=== PATIENT | male | born 1955 ===

== ENCOUNTER 2017-01-26 00:08 | Observation (INO) | payer OTHER ==
[2017-01-26] VITALS (13 sets, daily range): BP systolic 86–128; BP diastolic 51–86
[~2017-01-26] VITALS: Ht 167.6 cm; Wt 50.8 kg
--- NOTE | 2017-01-26 02:36 | ED ORDER SUMMARY ---
..... Patient: RAMIRO ROSALES OrderSheet [facility] VisitID: [id number] [address] [place] [address] 61y, M Registration Date/Time: 01/26/2017 ORDER SHEET Weight: 53.9 kg (stated) Allergies: No Known Drug Allergy GENERAL ORDERS: CBC w Diff Urgent (00:22 01/26/2017 Ely Rodriguez) (Ack 0:28 SRedmond) (0:58 TLewis R.N.) CMP Urgent (00:22 01/26/2017 Ely Rodriguez) (Ack 0:28 SRedmond) (0:58 TLewis R.N.) CT Abd/Pel w Cont (No) (10/0.7) (R inguinal mass) Urgent (01:03 01/26/2017 Ely Rodriguez) (Ack 1:06 SRedmond) (1:20 TLewis R.N.) Chest 1V (Pre-op) Urgent (02:35 01/26/2017 Ely Rodriguez) (Ack 2:39 AMcQuoid ER Tech1) (2:39 TLewis R.N.) EKG - ER Stat (02:35 01/26/2017 Ely Rodriguez) (Ack 2:40 SRedmond) (2:52 AMcQuoid ER Tech1) MEDICATION ORDERS: IV FLUIDS: IV Saline Lock (00:22 01/26/2017 Ely Rodriguez) (0:27 TChapman R.N.) Clindamycin IV 600 mg/50mL (NOW) (03:20 01/26/2017 Ely Rodriguez) (Ack 3:26 HSoule) Levofloxacin IV 500 mg/100mL (NOW) (03:21 01/26/2017 Ely Rodriguez) (Ack 3:26 HSoule) ORDER SHEET NOTES: [Electronically signed by Chilo Alvarado R.N. (04:01 01/26/2017)] [Electronically signed by Shankar Porter Dr. (04:31 01/26/2017)] [Electronically locked/signed by Chilo Alvarado R.N. (04:01/26/2017)]
--- NOTE | 2017-01-26 02:36 | ED NURSING NOTES ---
Clinical Report - Nurses [address] [place] [place] [address] 01/26/2017 0:11 Patient: RAMIRO ROSALES TRIAGE Triage time 00:19. Acuity: LEVEL 3. Chief Complaint: SKIN PROBLEM and TENDER AREA. --00:23 Janeth Card R.N. 00:17 01/26/17. BP: 119/66 taken on the left arm, while lying. HR: 87 (normal rate). RR: 16 (unlabored). O2 saturation: 95% on room air. Temp: 98.3 F (oral). Pain level now: 0. --00:23 Janeth Card R.N. Weight: 53.9 kg stated. Height/Length: 66 inches Per Patient. BMI: 19.2. --00:15 Janeth Card R.N. Allergies No Known Drug Allergy. --00:21 Janeth Card R.N. History Arrived by EMS. Historian: patient. Location - right groin. This started today. 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 SOCIAL HX: Heavy tobacco smoker (cigarette)- less than 1 pack per day. No alcohol use or drug use. No infectious disease exposure. FALL RISK ASSESSMENT: Fall risk assessment completed. No fall risk identified. NUTRITIONAL RISK ASSESSMENT: The nutritional risk assessment revealed no deficiencies. FUNCTIONAL ASSESSMENT: Functional assessment: no impairments noted. LEARNING NEEDS ASSESSMENT: The learning needs assessment revealed no barriers. SKIN INTEGRITY ASSESSMENT: Skin integrity risk assessment completed. No skin integrity risk identified. --00:23 Janeth Card R.N. PROBLEMS: Depression. Diabetes Mellitus. --00:22 Janeth Card R.N. Heart Disease. --00:22 Janeth Card R.N. ADDITIONAL SURGERIES: Stent. --00:22 Janeth Card R.N. Interventions ID band on patient. To treatment room. --00:23 Janeth Card R.N. PHYSICAL ASSESSMENT To room via stretcher. GENERAL / NEURO / PSYCH: Alert. The patient does not appear to be in acute distress. Oriented X 4. HEENT: Mucous membranes are pink. RESPIRATORY: Respirations not labored. Breath sounds within normal limits. CVS: Pulses within normal limits. GI / : Abdomen nontender. SKIN: Skin is intact and warm. Swelling in the right groin- associated with erythema and tenderness. No skin rash. --00:25 Janeth Card R.N. NURSING PROGRESS NOTES 00:25 01/26/17. The plan of care for this patient has been created. Patient gowned. Head of bed elevated. Emergency Veterinarian provided for the genital exam by the physician. Side rails up x 1. Bed placed in lowest position. Brakes of bed on. Patient ready for evaluation- ED physician notified. --00:26 Janeth Card R.N. 00:26 01/26/2017 Site #1 started via IV in the left antecubital space with an 20g angiocath; one attempt. Blood drawn: rainbow set. Labeled in the presence of the patient and sent to the lab. Saline lock flushed with 5 mL saline. --00:27 Janeth Card R.N. The initial plan of care for this patient includes an assessment with efforts to address developmental concerns; impairment of the integumentary system. Reassurance given. ( patient waiting for CT). --00:35 Janeth Card R.N. Patient transported to CT by stretcher with tech. (01:20). --01:21 Chilo Alvarado R.N. ( Pt is resting in bed with no signs of distress. Pt does understand he will need surgery, per MD.). --02:10 Chilo Alvarado R.N. 02:08 01/26/17. BP: 112/69. HR: 76. RR: 15. O2 saturation: 94%. Pain level now 11/28. --02:10 Chilo Alvarado R.N. ( X ray in the room.). --02:39 Chilo Alvarado R.N. EKG was performed by a tech and shown to the ED physician. --02:52 McKeith, Nehal, ER Tech1 ( Report given to Olivia GIBSON). --03:15 Christiano, Chilo, R.N. DISPOSITION / DISCHARGE Departure time: 344. Condition at departure: unchanged. Disposition: observation in Acute Care (344). ( pt was taken up on stretcher with primary rn). --04:00 Chilo Alvarado R.N. Locked/Released at 01/26/2017 4:01 by Chilo Alvarado R.N.
--- NOTE | 2017-01-26 02:36 | ED ORDER SUMMARY ---
..... Patient: RAMIRO ROSALES OrderSheet [facility] VisitID: [id number] [address] [place] [address] 61y, M Registration Date/Time: 01/26/2017 ORDER SHEET Weight: 53.9 kg (stated) Allergies: No Known Drug Allergy GENERAL ORDERS: CBC w Diff Urgent (00:22 01/26/2017 Ely Rodriguez) (Ack 0:28 SRedmond) (0:58 TLewis R.N.) CMP Urgent (00:22 01/26/2017 Ely Rodriguez) (Ack 0:28 SRedmond) (0:58 TLewis R.N.) CT Abd/Pel w Cont (No) (10/0.7) (R inguinal mass) Urgent (01:03 01/26/2017 Ely Rodriguez) (Ack 1:06 SRedmond) (1:20 TLewis R.N.) Chest 1V (Pre-op) Urgent (02:35 01/26/2017 Ely Rodriguez) (Ack 2:39 AMcQuoid ER Tech1) (2:39 TLewis R.N.) EKG - ER Stat (02:35 01/26/2017 Ely Rodriguez) (Ack 2:40 SRedmond) (2:52 AMcQuoid ER Tech1) MEDICATION ORDERS: IV FLUIDS: IV Saline Lock (00:22 01/26/2017 Ely Rodriguez) (0:27 TChapman R.N.) Clindamycin IV 600 mg/50mL (NOW) (03:20 01/26/2017 Ely Rodriguez) (Ack 3:26 HSoule) Levofloxacin IV 500 mg/100mL (NOW) (03:21 01/26/2017 Ely Rodriguez) (Ack 3:26 HSoule) ORDER SHEET NOTES: [Electronically signed by Chilo Alvarado R.N. (04:01 01/26/2017)] [Electronically signed by Shankar Porter Dr. (04:31 01/26/2017)] [Electronically locked/signed by Chilo Alvarado R.N. (04:01/26/2017)]
--- NOTE | 2017-01-26 02:36 | ED NURSING NOTES ---
Clinical Report - Nurses [address] [place] [address] 01/26/2017 0:11 Patient: RAMIRO ROSALES TRIAGE Triage time 00:19. Acuity: LEVEL 3. Chief Complaint: SKIN PROBLEM and TENDER AREA. --00:23 Janeth Card R.N. 00:17 01/26/17. BP: 119/66 taken on the left arm, while lying. HR: 87 (normal rate). RR: 16 (unlabored). O2 saturation: 95% on room air. Temp: 98.3 F (oral). Pain level now: 0. --00:23 Janeth Card R.N. Weight: 53.9 kg stated. Height/Length: 66 inches Per Patient. BMI: 19.2. --00:15 Janeth Card R.N. Allergies No Known Drug Allergy. --00:21 Janeth Card R.N. History Arrived by EMS. Historian: patient. Location - right groin. This started today. 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 SOCIAL HX: Heavy tobacco smoker (cigarette)- less than 1 pack per day. No alcohol use or drug use. No infectious disease exposure. FALL RISK ASSESSMENT: Fall risk assessment completed. No fall risk identified. NUTRITIONAL RISK ASSESSMENT: The nutritional risk assessment revealed no deficiencies. FUNCTIONAL ASSESSMENT: Functional assessment: no impairments noted. LEARNING NEEDS ASSESSMENT: The learning needs assessment revealed no barriers. SKIN INTEGRITY ASSESSMENT: Skin integrity risk assessment completed. No skin integrity risk identified. --00:23 Janeth Card R.N. PROBLEMS: Depression. Diabetes Mellitus. --00:22 Janeth Card R.N. Heart Disease. --00:22 Janeth Card R.N. ADDITIONAL SURGERIES: Stent. --00:22 Janeth Card R.N. Interventions ID band on patient. To treatment room. --00:23 Janeth Card R.N. PHYSICAL ASSESSMENT To room via stretcher. GENERAL / NEURO / PSYCH: Alert. The patient does not appear to be in acute distress. Oriented X 4. HEENT: Mucous membranes are pink. RESPIRATORY: Respirations not labored. Breath sounds within normal limits. CVS: Pulses within normal limits. GI / : Abdomen nontender. SKIN: Skin is intact and warm. Swelling in the right groin- associated with erythema and tenderness. No skin rash. --00:25 Janeth Card R.N. NURSING PROGRESS NOTES 00:25 01/26/17. The plan of care for this patient has been created. Patient gowned. Head of bed elevated. Counter Pocket Sewer provided for the genital exam by the physician. Side rails up x 1. Bed placed in lowest position. Brakes of bed on. Patient ready for evaluation- ED physician notified. --00:26 Janeth Card R.N. 00:26 01/26/2017 Site #1 started via IV in the left antecubital space with an 20g angiocath; one attempt. Blood drawn: rainbow set. Labeled in the presence of the patient and sent to the lab. Saline lock flushed with 5 mL saline. --00:27 Janeth Card R.N. The initial plan of care for this patient includes an assessment with efforts to address developmental concerns; impairment of the integumentary system. Reassurance given. ( patient waiting for CT). --00:35 Janeth Card R.N. Patient transported to CT by stretcher with tech. (01:20). --01:21 Chilo Alvarado R.N. ( Pt is resting in bed with no signs of distress. Pt does understand he will need surgery, per MD.). --02:10 Chilo Alvarado R.N. 02:08 01/26/17. BP: 112/69. HR: 76. RR: 15. O2 saturation: 94%. Pain level now 11/28. --02:10 Chilo Alvarado R.N. ( X ray in the room.). --02:39 Chilo Alvarado R.N. EKG was performed by a tech and shown to the ED physician. --02:52 McKeith, Nehal, ER Tech1 ( Report given to Olivia GIBSON). --03:15 Christiano, Chilo, R.N. DISPOSITION / DISCHARGE Departure time: 344. Condition at departure: unchanged. Disposition: observation in Acute Care (344). ( pt was taken up on stretcher with primary rn). --04:00 Chilo Alvarado R.N. Locked/Released at 01/26/2017 4:01 by Chilo Alvarado R.N.
--- NOTE | 2017-01-26 02:36 | ED CLINICAL REPORT ---
Clinical Report - Physicians/Mid Levels [facility] [address] [place] [address] 01/26/2017 0:11 Patient: RAMIRO ROSALES Time Seen: 00:18; initial patient contact. Arrived- By ambulance. Historian- patient. HISTORY OF PRESENT ILLNESS Chief Complaint: SKIN RASH and BOIL. This started yesterday and is still present. It was gradual in onset. It is described as painful. It has been located on the right lower extremity (R inguinal area). No cause has been identified. No recent insect bite. Similar symptoms previously: None. Recent medical care: Not recently seen/assessed. REVIEW OF SYSTEMS No fever, chills, abdominal pain, nausea or vomiting. All systems otherwise negative, except as recorded above. PAST HISTORY Depression. Diabetes Mellitus. Heart Disease. SURGERIES: Stent. Allergies: No Known Drug Allergy. SOCIAL HISTORY Current every day heavy tobacco smoker. No alcohol use or drug use. ADDITIONAL NOTES The nursing notes have been reviewed. PHYSICAL EXAM Vital Signs: 01/26/2017 00:17 BP: 119/66. HR: 87. RR: 16. O2 saturation: 95%. Temp: 98.3 F. Pain level now: 0/10. Have been reviewed as normal. Appearance: Alert. Oriented X3. No acute distress. ENT: Pharynx normal. CVS: Normal heart rate and rhythm. Heart sounds normal. Respiratory: No respiratory distress. Breath sounds normal. Abdomen: Nontender. No organomegaly. No hernia. Skin: Single medium abscess with cellulitis (Right inguinal). No drainage. Mild, erythematous skin rash present in the right groin. Neuro: Oriented X 3. LABS, X-RAYS, AND EKG EKG: EKG time: (247). No acute process. No acute ischemia. Normal sinus rhythm. Rate: 80. Normal P waves. Normal ANGELIA. Normal QRS complex. Right axis deviation. Normal ST and T waves, QT and QTc. Prior EKG unavailable. The study has been interpreted contemporaneously by me. The study has been independently viewed by me. The EKG appears to be a good tracing. Interpretation time: 0248. Chest X-ray: No acute disease. Moderate hyperinflation present on the right and left with flattening of the diaphragm. Consistent with COPD. Views: AP. Technique: good. The X-rays were independently viewed by me and interpreted contemporaneously by me. Prior films were not available for comparison. Interpretation time: 03:14. Abdominal CT: Superficial skin thickening and 1.1 cm enhancing mass in the R inguinal area suspicious for developing abscess. Also suspected R epididymitis. Study type: abdomen and pelvis. Abdominal CT performed with IV contrast. Prior studies were not available for comparison. The study was interpreted by the radiologist and discussed with the radiologist. Interpretation time: 0145. Laboratory Tests: CBC w Diff: (BUFFY: 01/26/2017 00:30) ( MsgRcvd 01/26/2017 00:54) Final results Test Result Flag Units (Reference) WHITE BLOOD COUNT 11.6 H K/uL (4.5-11.5) RED BLOOD COUNT 4.09 L M/uL (4.50-5.90) HEMOGLOBIN 13.6 gm/dL (13.5-17.5) HEMATOCRIT 40.6 L % (41.0-53.0) MEAN CELL VOLUME 99 fL (80-100) MEAN CORPUSCULAR HGB 33 pg (26-34) MEAN CORPUSCULAR HGB CONC 34 g/dL (31-37) RED CELL DISTRIBUTION WIDTH 14.2 % (11.6-14.8) PLATELET COUNT 266 K/uL (150-400) NEUTROPHIL % 62.9 % (50-75) LYMPH % 24.2 L % (25-40) MONO % 7.7 % (3-14) EOSINOPHIL % 4.3 H % (0-4) BASOPHIL % 0.9 % (0-2) CMP: (BUFFY: 01/26/2017 00:30) ( MsgRcvd 01/26/2017 01:03) Final results Test Result Flag Units (Reference) GLUCOSE 112 H mg/dL (70-110) BUN 10 mg/dL (7-18) CREATININE 0.9 mg/dL (0.6-1.3) Estimated GFR >60 mL/min Estimated GFR- >60 mL/min Note: Persistent reduction over 3 months in eGFR<60 mL/min/1.73 m2 defines CKD. Patients with eGFR values>=60 mL/min/1.73 m2 may also have CKD if evidence ofpersistent proteinuria. Additional information may be foundat www.kidney.org. SODIUM 140 mmol/L (136-145) POTASSIUM 3.8 mmol/L (3.5-5.1) CHLORIDE 103 mmol/L (98-107) CARBON DIOXIDE 29 mmol/L (21-32) CALCIUM 9.3 mg/dL (8.5-10.1) TOTAL PROTEIN 7.1 g/dL (6.4-8.2) ALBUMIN 3.8 g/dL (3.3-5.0) BILIRUBIN, TOTAL 0.3 mg/dL (0.0-1.0) ALKALINE PHOSPHATASE 78 U/L (46-116) AST (SGOT) 22 U/L (15-37) ALT (SGPT) 23 U/L (12-78) . PROGRESS AND PROCEDURES Consult obtained from surgery. call returned 02:30 Dr. Babb. Admit to hospitalist and will take to OR in the AM. Disposition: Observation in Acute Care. CLINICAL IMPRESSION Single deep abscess to the right inguinal region. Right epididymitis. INSTRUCTIONS Follow-up: Screening today revealed the patient's blood pressure to be in the normal range. (Electronically signed by Shankar Porter Dr. 01/26/2017 4:31)
--- NOTE | 2017-01-26 03:19 | Progress Note ---
Subjective General 61 y.o. male smoker who presents with right groin abscess confirmed on CT. Hx of CAD with hx of stent in past and DM. Plan: IV abx, Surgical consult for I&D in OR.
--- NOTE | 2017-01-26 04:00 | NUR ---
Pt from ED. Ambulated stretcher to bed. R groin noted egg size induration. Warm to touch, erythema. Denies pain. Pt is poor historian. [place] & speech difficult to understand. ? dev delay. He states he sees mental health q2wks for shots, stating "I used to hallucinate." Pt does not know home meds. Will have day RN call. Abx to be hung. Pt understands he is NPO for possible surgery.
--- NOTE | 2017-01-26 04:31 | ED MAR SUMMARY ---
..... Medication Administration Record [facility] [address] [place], [place] [id number] Patient: RAMIRO ROSALES Visit ID: [id number] 61y, M Weight: 53.9 kg Height/Length: 66 in BMI: 19.2 ALLERGIES: No Known Drug Allergy
--- NOTE | 2017-01-26 04:31 | ED DISCHARGE INSTRUCTIONS ---
Patient: RAMIRO ROSALES General Instructions [facility] VisitID: [id number] [address] [place] [address] 61y, M Registration Date/Time: 01/26/2017 Single deep abscess to the right inguinal region. Right epididymitis. INSTRUCTIONS Follow-up: Screening today revealed the patient's blood pressure to be in the normal range. (Electronically signed by Shankar Porter Dr. 01/26/2017 4:31)
--- NOTE | 2017-01-26 04:31 | ED MED RECONCILIATION SUMMARY ---
Patient: RAMIRO ROSALES Medication Reconciliation Report [facility] VisitID: [id number] [address] [place] [address] 61y, M Registration Date/Time: 01/26/2017 Weight: 53.9 kg Height/Length: 66 in. BMI: 19.2 ALLERGIES: No Known Drug Allergy The patient's Home Medications are listed below: Not obtained. The source(s) of the original Home Medication information: Not obtained. The following Medications were given to the patient in the Emergency Department: None. The following Medications were prescribed to the patient: None.
--- NOTE | 2017-01-26 04:31 | ED DISCHARGE INSTRUCTIONS ---
Patient: RAMIRO ROSALES General Instructions [facility] VisitID: [id number] [address] [place] [place] [address] 61y, M Registration Date/Time: 01/26/2017 Single deep abscess to the right inguinal region. Right epididymitis. INSTRUCTIONS Follow-up: Screening today revealed the patient's blood pressure to be in the normal range. (Electronically signed by Shankar Porter Dr. 01/26/2017 4:31)
--- NOTE | 2017-01-26 04:31 | ED MAR SUMMARY ---
..... Medication Administration Record [facility] [address] [place], [place] [id number] Patient: RAMIRO ROSALES Visit ID: [id number] 61y, M Weight: 53.9 kg Height/Length: 66 in BMI: 19.2 ALLERGIES: No Known Drug Allergy
--- NOTE | 2017-01-26 04:31 | ED MED RECONCILIATION SUMMARY ---
Patient: RAMIRO ROSALES Medication Reconciliation Report [facility] VisitID: [id number] [address] [place] [address] 61y, M Registration Date/Time: 01/26/2017 Weight: 53.9 kg Height/Length: 66 in. BMI: 19.2 ALLERGIES: No Known Drug Allergy The patient's Home Medications are listed below: Not obtained. The source(s) of the original Home Medication information: Not obtained. The following Medications were given to the patient in the Emergency Department: None. The following Medications were prescribed to the patient: None.
--- NOTE | 2017-01-26 05:21 | NUR ---
Money from pt wallet ($55) brought to safe in admitting by nsg supervisor phosphoric acid. Pt is now resting. Will check BS q6h per order, as is diabetic
--- NOTE | 2017-01-26 06:44 | History & Physical Report ---
Information Source Information Source: Self Reliability: Good History Chief Complaint Right groin pain History of Present Illness 61-year-old male who was brought to the emergency room for evaluation of what initially was thought to be a right groin rash. According to the patient who is developmentally delayed and lives by himself and is followed by a mental health provider, the discomfort began approximately 2 days ago. Denies any trauma to this area. Denies any fever or chills. Patient History 1. Abscess of groin, right Social History Single. No children. Smokes less than a half pack cigarettes a day. Does not use recreational drugs. Does not drink alcohol. He is not employed. He is on disability for mental health issues. Health Maintenance Past medical surgical history includes depression, diabetes. Heart disease. Status post stent placement. Medications and Allergies Medications No record of medications from home. Current Medications Sig/Blair Start time Last Medication Dose Route Stop Time Status Admin Levofloxacin/Dextrose 100 ML Q24HR 01/27 0900 AC 01/26 IV 0429 Clindamycin 50 ML Q6H 01/26 0900 CAN Phosphate/Dextrose IV Levofloxacin/Dextrose 500 MG DAILY 01/26 0900 CAN IV Clindamycin 50 ML Q6HR 01/26 0600 AC 01/26 Phosphate/Dextrose IV 0535 Insulin Human Lispro See Dose Q6HR 01/26 0600 AC Insts (1) SC Clindamycin 900 MG Q6H 01/26 0330 CAN Phosphate/Dextrose IV Acetaminophen 650 MG Q6H PRN 01/26 0315 AC PO Dose Instructions: (1)Insulin Human Lispro: LOW DOSE SLIDING SCALE Allergies Coded Allergies: NKA (01/26/17) Allergies No Known Drug Allergy. --00:21 Janeth Card R.N. Review of Systems Constitutional Other (no history of hepatitis, jaund). Eyes Denies: Vision Change. ENT Denies: Ear Pain, Nasal Discharge, Mouth Swelling, Throat Pain. Respiratory Denies: Cough, SOB w/exertion. Cardiovascular Denies: Chest Pain, Palpitations. Gastrointestinal Denies: Melena, Hematochezia. Genitourinary Denies: Dysuria, Hematuria. Musculoskeletal Denies: Neck Pain, Back Pain, Leg Pain. Skin Rash, Other (complains of swelling and disc). Neurological Denies: Weakness, Numbness, Seizures. Physical Exam Vital Signs / I&Os Vital Signs Date Time Temp Pulse Resp B/P Pulse O2 O2 Flow FiO2 Ox Delivery Rate 01/26 0626 98.6 79 18 108/64 95 Room Air 01/26 0346 98.2 79 16 128/73 95 Room Air General Appearance Alert, Oriented X3, Cooperative, No acute distress HEENT Normal exam, PERRLA Lungs bilateral inspiratory expiratory wheezing Neck Supple, No JVD Cardiovascular Regular rate and rhythm Abdomen Normal exam, Soft, No tenderness, No masses, No hepatosplenomegaly Extremities No cyanosis, No edema Skin 3 x 2 cm swelling inferior medial aspect right groin. Slightly tender to palpation. Overlying erythema. Fluctuant. Neurological No lateralizing signs Psych/Mental Status slowed speech and deliberate. Oriented conversant no acute distress LAB Results Laboratory Tests 01/26 0030 Chemistry Plasma Sodium (136 - 145 mmol/L) 140 Plasma Potassium (3.5 - 5.1 mmol/L) 3.8 Plasma Chloride (98 - 107 mmol/L) 103 CO2 (Enzymatic) (21 - 32 mmol/L) 29 BUN (7 - 18 mg/dL) 10 Creatinine (0.6 - 1.3 mg/dL) 0.9 Est GFR ( Amer) (mL/min) >60 Est GFR (Non-Af Amer) (mL/min) >60 Glucose (70 - 110 mg/dL) 112 Plasma Calcium (8.5 - 10.1 mg/dL) 9.3 Total Bilirubin (0.0 - 1.0 mg/dL) 0.3 AST (15 - 37 U/L) 22 ALT (12 - 78 U/L) 23 Alkaline Phosphatase (46 - 116 U/L) 78 Total Protein (6.4 - 8.2 g/dL) 7.1 Albumin (3.3 - 5.0 g/dL) 3.8 Hematology WBC (4.5 - 11.5 K/uL) 11.6 RBC (4.50 - 5.90 M/uL) 4.09 Hgb (13.5 - 17.5 gm/dL) 13.6 Hct (41.0 - 53.0 %) 40.6 MCV (80 - 100 fL) 99 MCH (26 - 34 pg) 33 RDW (11.6 - 14.8 %) 14.2 Neut % (Auto) (50 - 75 %) 62.9 Lymph % (Auto) (25 - 40 %) 24.2 Hawkins % (Auto) (3 - 14 %) 7.7 Eos % (Auto) (0 - 4 %) 4.3 Baso % (Auto) (0 - 2 %) 0.9 Plt Count, EDTA (150 - 400 K/uL) 266 PUBS MCHC (31 - 37 g/dL) [address] indicates fluid collection/abscess right groin. Assessment and Plan Problem List 1. Abscess of groin, right Plan Incision and drainage of right groin abscess. The procedure has been explained to the patient will schedule him appropriately. All questions answered to his satisfaction.
--- NOTE | 2017-01-26 06:54 | HISTORY AND PHYSICAL ---
ADMITTED: 01/26/2017 CHIEF COMPLAINT: 1. Skin rash and boil HISTORY OF PRESENT ILLNESS: The patient is a 61-year-old male who presents to the emergency department with a right groin rash and boil that started a couple days prior to admit. It started getting tender. He denies any trauma or recent insect bite or cause, that he has never had any similar groin issues. With this, things were getting worse and he came into the emergency department for further evaluation. MEDICAL/SURGICAL HISTORY: Past medical history: He has had depression, diabetes, heart disease. Past surgeries he says for his heart. He also states he had neck surgery that they were just exploring his left neck. MEDICATIONS: 1. He is uncertain of the names of his medications. 2. He says he takes a cholesterol pill. 3. A sugar pills. 4. Two sleeping pills. 5. Also shot q.2 weeks for mental health. PRIMARY CARE PROVIDER. His mental health provider is Jaquelin Parmar from [facility]. Primary medical doctor is HILDA Espinoza. ALLERGIES: 1. NONE KNOWN. SOCIAL HISTORY: He smokes tobacco daily, is a heavy smoker. Denies alcohol or drug use. He lives in a senior apartment building in [facility]. FAMILY HISTORY: Noncontributory. REVIEW OF SYSTEMS: He denies any chest pain, shortness breath, fevers, or any systemic illness, black or bloody stools, or gastrointestinal complaints. CODE STATUS: FULL CODE. PHYSICAL EXAMINATION: GENERAL: He is an alert male who is in no apparent distress, easily able to jump up out of the gurney and walk across the room. VITAL SIGNS: Blood pressure of 119/66, heart rate of 87, respirations 16, temperature 98.3, and saturating 95% on room air. HEENT: Extraocular movements intact. Pupils equal, round, and reactive to light. Oropharynx is clear with moist mucous membranes. NECK: Supple without lymphadenopathy. LUNGS: Clear to auscultation bilaterally. HEART: Regular rate and rhythm. No murmur. ABDOMEN: Soft. It is nontender, nondistended. EXTREMITIES: No edema. His right groin has an area of induration that around 2-3 x 5 cm. LAB/IMAGING: Chest x-ray is without acute process. EKG shows normal sinus rhythm without any acute ST-T wave changes. A CT of his groin shows an abscess in the right groin and some epididymitis. IMPRESSION: 1. This is a 61-year-old male with a right groin abscess. PLAN: He is going to be admitted for IV antibiotics and surgical exploration, incision and drainage. We will monitor his blood sugars as he has got diabetes and we will try to figure out his home medications in the daytime and anticipate that he will be discharged shortly. May need to just restart his medications at the time of discharge.
--- NOTE | 2017-01-26 08:00 | DIAGNOSTIC IMAGING REPORT ---
PROCEDURE: CT ABD/PELVIS WITH CONTRAST CLINICAL INDICATION: Right groin swelling, initial encounter. TECHNIQUE: 95 ml of Isovue 300 were injected intravenously and axial images were obtained of the entire abdomen and pelvis with sagittal and coronal reformations. COMPARISON: None. FINDINGS: ABDOMEN: Lung base are clear. Heart size is normal. Small calcified gallstone. Three hypoenhancing hepatic lesions, largest 7 mm, indeterminate but likely small cysts although other etiologies are not excluded. Pancreas, spleen, adrenal glands and left kidney are normal. Small right renal cyst. Moderate atherosclerosis of the aorta. Large amount of stool. Small hiatal hernia. PELVIS: Enlarged enhancing right epididymis with adjacent inflammatory changes and 1 cm thick walled low-density collection suspicious for a developing abscess. There is thickening of the overlying skin. Enlarged prostate (6 cm) with dystrophic calcifications. Mildly distended bladder. No pelvic mass or inflammatory changes. Bones are unremarkable. IMPRESSION: 1. Findings suspicious for a epididymitis and possible adjacent 1.1 cm abscess. Recommend ultrasound for confirmation 2. Cholelithiasis 3. Nonspecific liver hypodensities 4. Obstipation 5. Preliminary results submitted by Dr. Nieto, [facility] radiology. All CT scans at this facility use dose modulation, iterative reconstruction, and/or weight-based dosing when appropriate to reduce radiation dose to as low as reasonably achievable.
--- NOTE | 2017-01-26 08:48 | NUR ---
RECEIVED PT IN BED, ASLEEP BUT EASILY AROUSED. ALERT, ORIENTED, COHERENT, SLOW TO RESPOND, HARD OF HEARING, SLURRED SPEECH BUT COMPREHENSIVE, OBEYS COMMANDS. CAN MAKE HIS NEEDS KNOWN. V/S TAKEN AND RECORDED. ASSESSMENT DONE. PT DENIES ANY PAIN AT THIS TIME. SEEN AND EXAMINED BY DR FIELDS EARLIER? FOR I AND D ON THE RT GROIN. PT UNDERSTOOD. CONSENT SECURED.
--- NOTE | 2017-01-26 10:38 | DIAGNOSTIC IMAGING REPORT ---
PROCEDURE: XR CHEST 1 VIEW INDICATION: COUGH TECHNIQUE: Portable AP view 241 a.m. COMPARISON: None. FINDINGS: Lungs are clear. Heart and mediastinum are normal. Thorax is normal. IMPRESSION: 1. Negative chest.
--- NOTE | 2017-01-26 11:36 | NUR ---
TRIED TO CALL MS FLORES ( PT'S COUNSELOR) UNABLE TO TALK TO HER BUT LEFT A MESSAGE.
[2017-01-26] MEDS ORDERED: PROAIR HFA IN (11:43)
[2017-01-26] MEDS ORDERED: LIPITOR80 MG PO (11:43)
[2017-01-26] MEDS ORDERED: ASPIRIN81 M1 PO (11:43)
[2017-01-26] MEDS ORDERED: VITAMIN D1000 UNIT PO (11:45)
[2017-01-26] MEDS ORDERED: PREVACID30 MG PO (11:47)
--- NOTE | 2017-01-26 15:06 | Provider's Discharge Care Plan ---
Problem, Goal, Plan Problem List 1. Abscess of groin, right Instructions: Follow up as directed, Take meds as directed, wound care per wound care 2. Tobacco abuse Instructions: Stop smoking
--- NOTE | 2017-01-26 15:40 | NUR ---
ON SCHEDULED ANTIBIOTICS-NO PREOP ANTIBIOTICS ORDERED
--- NOTE | 2017-01-26 17:48 | NUR ---
PT ARRIVED AT 1740 FROM THE PACU. RIGHT THIGH DRESSING IS C/D/I. DISCUSSED W/ SURGEON, HE WILL CHANGE IN AM. VSS. RESTING W/ CALL LIGHT IN REACH.
--- NOTE | 2017-01-26 18:05 | NUR ---
PT TRASPORTED TO ACUTE CARE AT 1726. PRIOR D/C FROM PACU PT IS AWAKE AND ALERT. PT DENIES PAIN OR NAUSEA. VSS. RIGHT GROIN DRESSING IS CLEAN AND DRY. REPORT GIVEN TO FADY.
--- NOTE | 2017-01-27 00:21 | NUR ---
BP WAS 87/51, MD AWARE. 500CC BOLUS ORDERED. NO CHANGE IN BLOOD PRESSURE AFTER BOLUS COMPLETE. MD MADE AWARE, NO NEW ORDERS.
--- NOTE | 2017-01-27 02:35 | OPERATIVE REPORT ---
DATE OF SURGERY: 01/26/2017 SURGEON: Jamaica Babb III, MD CULTURE MEDIA LABORATORY ASSISTANT: None. PREOPERATIVE DIAGNOSIS: 1. Abscess, right groin POSTOPERATIVE DIAGNOSIS: 1. Abscess, right groin PROCEDURE PERFORMED: 1. Incision and drainage and curettage, debridement of subcutaneous fascia and superficial muscle, right groin. ANESTHESIA: General endotracheal, local 1% Xylocaine with epinephrine, 0.5% Marcaine with epinephrine. INDICATIONS: The patient is a 61-year-old male with a 2-day history of discomfort right groin, was seen in the emergency department, evaluated and noted to have an abscess. He was admitted to [facility] and [facility] were asked to evaluate the patient. He was noted to have a fluctuant mass in the inferior medial aspect of his right groin and scheduled for surgery. SURGICAL FINDINGS: The patient had a 3 x 1.5 x 1 cm abscess cavity containing necrotic tissue and purulent fluid. SURGICAL TECHNIQUE: The patient was brought to the operating room and placed in the dorsal supine position, where he underwent general endotracheal anesthesia by the anesthesiology department. After proper anesthesia had taken effect, the patient's lower abdomen, upper thigh and groin were prepped using Betadine and draped in a sterile fashion. The fluctuant area that was identified preoperatively was once again identified. This site was infiltrated around the abscess cavity in the subcutaneous tissue using local anesthetic. A hemostat was then used to probe the abscess cavity. Purulent material was obtained and sent for culture. The abscess cavity was incised superiorly and inferiorly. The underlying necrotic tissue was removed sharply using curettage. Hemostasis achieved using electrocautery. The wound was irrigated copiously with warm normal saline and then packed with iodoform gauze. A sterile pressure occlusive dressing was placed over the site. The patient tolerated the procedure well, was extubated and transferred to the recovery room in stable condition. There were no intraoperative or anesthetic complications.
--- NOTE | 2017-01-27 02:35 | OPERATIVE REPORT ---
DATE OF SURGERY: 01/26/2017 SURGEON: Jamaica Babb III, MD FENCE INSTALLER FOREMAN: None. PREOPERATIVE DIAGNOSIS: 1. Abscess, right groin POSTOPERATIVE DIAGNOSIS: 1. Abscess, right groin PROCEDURE PERFORMED: 1. Incision and drainage and curettage, debridement of subcutaneous fascia and superficial muscle, right groin. ANESTHESIA: General endotracheal, local 1% Xylocaine with epinephrine, 0.5% Marcaine with epinephrine. INDICATIONS: The patient is a 61-year-old male with a 2-day history of discomfort right groin, was seen in the emergency department, evaluated and noted to have an abscess. He was admitted to [facility] and [facility] were asked to evaluate the patient. He was noted to have a fluctuant mass in the inferior medial aspect of his right groin and scheduled for surgery. SURGICAL FINDINGS: The patient had a 3 x 1.5 x 1 cm abscess cavity containing necrotic tissue and purulent fluid. SURGICAL TECHNIQUE: The patient was brought to the operating room and placed in the dorsal supine position, where he underwent general endotracheal anesthesia by the anesthesiology department. After proper anesthesia had taken effect, the patient's lower abdomen, upper thigh and groin were prepped using Betadine and draped in a sterile fashion. The fluctuant area that was identified preoperatively was once again identified. This site was infiltrated around the abscess cavity in the subcutaneous tissue using local anesthetic. A hemostat was then used to probe the abscess cavity. Purulent material was obtained and sent for culture. The abscess cavity was incised superiorly and inferiorly. The underlying necrotic tissue was removed sharply using curettage. Hemostasis achieved using electrocautery. The wound was irrigated copiously with warm normal saline and then packed with iodoform gauze. A sterile pressure occlusive dressing was placed over the site. The patient tolerated the procedure well, was extubated and transferred to the recovery room in stable condition. There were no intraoperative or anesthetic complications.
[2017-01-27 02:41] VITALS: BP 108/63
--- NOTE | 2017-01-27 02:43 | NUR ---
Dsg intact to R groin. Plan is Dr. Babb to do 1st dsg change in am. Denies pain. Pt is hearing impaired & therefore speech seems also difficult to understand him. ?dev delayed. IV infusing. BP systolic in 90's. Is alert & OX3. Has not voided yet this shift. Will monitor.
--- NOTE | 2017-01-27 02:55 | NUR ---
Bladder scanned, as only voided 100cc on malick shift. Bladder scan shows 276cc. Will monitor.
--- NOTE | 2017-01-27 04:56 | NUR ---
Pt was up to BR to void. No issues thus far overnight. Awaiting Dr. Babb to do dsg chg 1841
--- NOTE | 2017-01-27 06:30 | NUR ---
Dr. Babb was in to do dressing chg. He used damp 4X4 & covered w/dry 4X4 & tape. Pt did well overnight. Voided. Denied pain.
--- NOTE | 2017-01-27 06:59 | Progress Note ---
Subjective General Patient states that he is doing well this am. Is post op on his right groin abscess. Waiting for teaching on wound care and the ready to go home. Denies cp,sob. Physical Exam Vital Signs / I&Os Vital Signs Date Time Temp Pulse Resp B/P Pulse O2 O2 Flow FiO2 Ox Delivery Rate 01/27 0241 Room Air 01/27 0241 98.1 62 16 108/63 91 Room Air 01/26 2301 98.2 61 16 93/59 93 Room Air 01/26 2026 98.1 68 16 86/52 96 Room Air 01/26 1943 98.1 61 16 87/51 96 Room Air 01/26 1910 97.9 70 16 94/54 97 Room Air 01/26 1840 97.5 78 18 100/65 98 Room Air 01/26 1825 97.5 76 18 121/73 99 Room Air 01/26 1810 97.9 91 18 128/86 91 Room Air 01/26 1755 97.9 96 18 125/82 96 01/26 1740 97.7 69 16 122/80 94 Room Air 01/26 1730 Room Air 01/26 1726 97.7 83 15 133/77 98 01/26 1720 90 17 127/78 98 01/26 1715 86 15 115/72 97 01/26 1710 96 16 120/68 99 01/26 1708 97.5 90 16 104/80 96 01/26 1338 98.4 65 18 109/69 94 01/26 0952 98.6 78 18 104/71 95 Room Air 01/26 0847 Room Air I&O 01/27 0000 01/26 1600 01/26 0800 Intake Total 880 455 150 Output Total 100 500 Balance 780 -45 150 General Appearance Alert, Cooperative HEENT Normal exam Lungs Clear to auscultation, Normal air movement Cardiovascular Regular rate and rhythm Abdomen Soft, No tenderness Extremities right groin dressing intact LAB Results Microbiology Date/Time Procedure - Status Source Growth 01/26 1650 Deep Wound Culture - RES SCROTUM 01/26 1650 Deep Wound Culture - RES SCROTUM 01/26 1650 Gram Stain - RES SCROTUM Assessment and Plan Problem List 1. Abscess of groin, right Plan post op doing well 2. Tobacco abuse Plan advised to quit.
[2017-01-27 07:14] VITALS: BP 101/70
--- NOTE | 2017-01-27 08:55 | NUR ---
RECEIVED PT AMBULATING FROM THE BATHROOM TO THE CHAIR, ALERT, ORIENTED, COHERENT, COOPERATIVE. V/S TAKEN AND RECORDED. ASSESSMENT DONE. PT DENIES PAIN, N/V AT THIS TIME. TOLERATED HIS MEALS WELL. DUE MEDS GIVEN. DRESSING TO THE RT GROIN IS CLEAN, DRY AND INTACT. MS GARCIA NOTIFIED REGARDING THE PLAN, DRESSING CHANGE EVERY 6 HRS. PLAN OF CARE INFORMED PT. I WILL TEACH HIM HOW TO CHANGE HIS DRESSING BEFORE NOON. PT UNDERSTOOD. NEEDS ATTENDED.
[2017-01-27 10:51] VITALS: BP 110/62
--- NOTE | 2017-01-27 11:50 | NUR ---
DRESSING CHANGE.INSTRUC PT HOW TO CHANGE THE DRESSING. EMPHASIZING ON WASHING HIS HANDS FIRST. TOOK OFF THE OLD DRESSING SLOWLY, PT UNDERSTOOD. MOIST 1 PC OF 4X4 GAUZE AND PACKED THE WOUND, USED Q TIPS, COVERED WITH 4X4 GAUZE FOLDED IT SECURED WITH FABRIC TAPE. PT UNDERSTOOD. I SPOKE WITH MS FLORES EARLIER AT 1135 AND UPDATED HER, SHE IS THE PT'S COUNSELOR. MS GARCIA SPOKE WITH MS FLORES TOO. AT 1200, DR FIELDS NOTIFIED REGARDING PT'S WOUND AND DRESSING. WITH ORDERS MADE AND CARRIED OUT.
--- NOTE | 2017-01-27 12:00 | NUR ---
DRESSIGN SUPPLIES LIKE GAUZE, SALINE, FABRIC TAPE, Q TIPS GIVEN TO PT.
--- NOTE | 2017-01-27 12:15 | NUR ---
WHILE CHANGING AND AFTER CHANGING PT'S DRESSING EARLIER " I THINK I CAN DO IT, WHEN WILL YOU CHANGE THE DRESSING AGAIN? CAN YOU SHOW IT AGAIN TO ME? OR I WILL TRY TO DO IT BUT I WANT YOU TO BE WITH ME?" PT STATES. INFORMED PT THAT AT 1800, RN WILL CHANGE THE DRESSING AND HE/SHE WILL TEACH HIM HOW TO CHANGE THE DRESSING AGAIN. PT UNDERSTOOD.
[2017-01-27 14:51] VITALS: BP 99/61
--- NOTE | 2017-01-27 16:30 | NUR ---
PT IS A&OX3, LS HAVE EXPIRATORY WHEEZES ON LEFT LOBE AND COARSE SOUNDS ON THE RIGHT LOBE. ENCOURAGED COUGH AND DEEP BREATHING. HR IS REG AND BT ACTIVE. PEDAL PULSES PRESENT AND NO EDEMA. RIGHT THIGH DRESSING IS C/D/I, WILL CHANGE AGAIN AROUND 1800. NO C/O PAIN OR NAUSEA. VSS. SITTING UP IN CHAIR WATCHING TV W/ CALL LIGHT IN REACH.
[2017-01-27 17:38] VITALS: BP 115/65
--- NOTE | 2017-01-27 21:47 | NUR ---
PT HAD TRAZADONE GIVEN TONIGHT AND LEVAQUIN PO FOR AM. CPU STATED INTERACTION POSSIBLE. CONTACTED PHARMACY [facility]IA [employer], TALKED W/ FILEMON BE AND SHE STATED MEDS WOULD BE OK TO GIVE THAT FAR APART, BUT TO MONITOR PT FOR ANY PROBLEMS.
--- NOTE | 2017-01-27 21:54 | NUR ---
DRESSING CHANGE DONE BY PT W/ THIS RN'S SUPERVISION SINCE PT IS GOING TO DO AT HOME IND. STOCKED SUPPLIES FOR PT TO TAKE HOME FOR DRESSING CHANGES IN CLOSET.
[2017-01-27 22:55] VITALS: BP 115/79
--- NOTE | 2017-01-28 00:01 | NUR ---
RESTING IN BED, DENIES ANY PAIN AT THIS TIME. R INGUINAL DRESSING CDI.
[2017-01-28 02:20] VITALS: BP 120/78
[2017-01-28 06:46] VITALS: BP 125/73
--- NOTE | 2017-01-28 06:53 | Discharge Summary ---
Discharge Summary Report Admit Date 01/26/17 Discharge Date 01/28/17 Admission Diagnosis Abscess groin, tobacco use Discharge Diagnosis Abscess groin, tobacco use Brief History The patient is a 61-year-old male who presents to the emergency department with a right groin rash and boil that started a couple days prior to admit. It started getting tender. He denies any trauma or recent insect bite or cause, that he has never had any similar groin issues. With this, things were getting worse and he came into the emergency department for further evaluation. Hospital Course Taken to the OR and had I&D now is post op and feeling well. Had an extra day for wound care and teaching post op. Also, IV abx. General Appearance Alert, Cooperative HEENT Atraumatic Lungs Clear to auscultation, Normal air movement Cardiovascular Regular Rate, No murmurs Abdomen Soft, No tenderness Pelvic post op dressing dry Neurological Normal gait, Normal speech Discharge Instructions/Meds Discharge to home; resume home meds. Antibiotics per surgery if indicated as now post op. F/u pmd 1-2 weeks and surgery as per surgery.
[2017-01-28 10:50] VITALS: BP 109/75
--- NOTE | 2017-01-28 11:25 | Provider's Discharge Care Plan ---
Problem, Goal, Plan Problem List 1. Abscess of groin, right Instructions: Follow up as directed ([facility] for assist wnd), wound care and f/u per surgery 2. Tobacco abuse Instructions: Stop smoking
--- NOTE | 2017-01-28 13:56 | NUR ---
1005: COMPLETED DRESSING CHANGE PT TEACHING WITH PT WITH RETURN DEMONSTRATION AND EXPLANTION. PRINTED OUT A REMINDER SHEET WITH SPECIFIC POINTS TO REMEMBER. PT STATES ABLE TO READ AND UNDERSTAND THE MATERIAL. GAVE PT 2x2 GAUZE TO USE FOR PACKING, IN PLACE OF 4X4. WILL PROVIDE PT WITH SAME THERAPEUTIC EFFECT AND IS MUCH EASIER FOR PT TO MANEUVER. PT STATES UNDERSTANDING AND ALL QUESTIONS WERE ANSWERED. GEOVANNA IN D/P NOTIFIED OF COMPLETED PT TEACHING. ALL D/C INSTRUCTIONS REVIEWED WITH PT IN DETAIL. ALL QUESTIONS ANSWERED. DRESSING CHANGE SUPPLIES GIVEN TO PT. ALL BELONGINGS WITH PT, INCLUDING WALLET AND $55 RETRIEVED BY YANETH FROM [employer]. WILL BE TRANSPORTED HOME BY [employer] THIS AFTERNOON. WCBONITA UNTIL D/C.
--- NOTE | 2017-01-28 14:03 | NUR ---
Pt being dischrged today, clarified orders for HH, call to [facility] with patients phone number [phone], which was received from [facility] addressograph operator, her number may also be used for messages for patient it is [phone]. Pt will have HH daily dressing changes and follow up at [facility] next ThursdayFebruary 03 at 8:15. Prior RN has gone over dressing changes with patient and collected supplies as well for discharge.
--- NOTE | 2017-01-28 15:43 | NUR ---
PT DC TO HOME VIA [email or web address]. ALL QUESTIONS ANSWERED. ALL BELONGINGS WITH PT. LEFT AT APPROX 1500.
== END 2017-01-28 15:00 | disposition home or self-care (01) ==
LOC: ED SRH 00:08 → ACUTE2 SRH 02:40 → TRANS SRH 02:40 → ACUTE2 SRH 03:55
PROVIDERS: Specialist; ADMIT Family Medicine
PROC: 0KT Muscles, Resection (ICD-10-PCS; principal; 2017-01-26 16:00)
DX: L02.214 Cutaneous abscess of groin (principal); E11.9 Type 2 diabetes mellitus without complications; E78.00 Pure hypercholesterolemia, unspecified; F32.9 Major depressive disorder, single episode, unspecified; F17.210 Nicotine dependence, cigarettes, uncomplicated; R62.50 Unspecified lack of expected normal physiological development in childhood; I25.10 Atherosclerotic heart disease of native coronary artery without angina pectoris; Z95.5 Presence of coronary angioplasty implant and graft
CPT/HCPCS: 29229; 29230; 50004; 60001; 70002; 80102; 83773; 84551; 90098; 90100; 90131; 90309; 90470; 95059